=== PATIENT | female | born 1990 | race Caucasian/White ===

== ENCOUNTER 2019-12-26 21:31 | Emergency (ER) | payer BC, MEDICAID, SELFPAY ==
[2019-12-26 21:31] VITALS: BP 147/90; PULSE 110; RESP 14; TEMP 37.1; O2SAT 97
--- NOTE | 2019-12-26 22:16 | ED.HA ---
HPI - Headache General Chief Complaint: Headache Stated Complaint: migraine Source: patient Mode of arrival: ambulatory Limitations: no limitations History of Present Illness HPI Narrative: 29 y.o. with hx of migraine headaches c/o 3 days of frontal and occipital pressure (rated #11/10) associated with neck and shoulder pain, made worse with head extension and rotation and sitting partially upright in bed. No hx of prolonged unusual head positions or exercises. She has minor photophobia and pain increased with smells. No noise sensitivities. She has mulitiple migraines each month which she describes as similar to this minus the occipital, neck and shoulder symptoms. She has no numbness or weakness of the extremities. Maxalt usually relieves her headaches. She has taken 2 tabs daily for the last 3 days with no relief. Related Data Home Medications Medication Instructions Recorded Confirmed rizatriptan 10 mg PO PRN 12/26/19 12/26/19 Allergies Allergy/AdvReac Type Severity Reaction Status Date / Time tramadol AdvReac Vomiting Verified 12/26/19 21:51 Review of Systems Constitutional: Constitutional: Denies chills and Denies fever(s) Eyes: Eyes: Denies change in vision Comments: no scatoma or visual disturbances. Gastrointestinal: Comments: minor nausea Musculoskeletal: Comments: no muscles pain elsewhere. Integumentary/Breasts: Skin/Breast: Denies rash Neurologic: Denies vertigo, Denies syncope and Denies weakness [facility] Past Medical History Medical History (Updated 12/27/19 @ 00:15 by David Hathaway MD) Migraine headache Exam Const: General: no acute distress Orientation/consciousness: patient oriented x3 Other: no photophobia. Sitting upright on side of bed. Normal volume and flluency of speech. HENMT: Face and sinus: sinus tenderness (frontal sinus tenderness only. ) Other: tender occiput Eyes: Pupils: Equal, round and reactive pupils present EOM: EOMs intact bilaterally Direct Ophthalmoscopy: No photophobia Neck: Neck: no lymphadenopathy Other: Tender cervical spinous processes, cervical and upper thoracic paraspinal muscles. Tender trapezius. Head ROM limited by pain: almost full flexion, extension and rotation to either side are moderately restricted. Back/Spine/Pelvis: Other: . Neuro: General: patient oriented x3 Cranial nerves: Yes CN's II-XII intact bilaterally Cognition (Neuro): normal cognition Speech: normal speech Gait exam (Neuro): Normal gait present Motor exam (neuro): 5/5 motor strength present throughout Sensory Exam: normal sensation Extrem: General: normal to inspection Course Course Emergency Course: Given Toradol 60 mg IM and Flexeril 10 mg p.o. with pain decreasing to a 6/10. Reglan 10 + Benadryl 25 mg IV resulted in marked improvement. Headache #2-3/10. Neck and should soreness has decreased. Vital Signs Vital signs: Vital Signs Temperature 37.1 C 12/26/19 21:31 Pulse Rate 110 H 12/26/19 21:31 Respiratory Rate 14 12/26/19 21:31 Blood Pressure 147/90 H 12/26/19 21:31 Pulse Oximetry 97 12/26/19 21:31 Temperature 37.1 C 12/26/19 21:31 Pulse Rate 110 H 12/26/19 21:31 Respiratory Rate 15 12/27/19 00:24 Blood Pressure 147/90 H 12/26/19 21:31 Pulse Oximetry 100 12/27/19 00:24 MDM - Headache Differential Diagnosis Differential diagnosis: Likely migraine and tension headache Discharge Plan Discharge Clinical Impression: Migraine headache, Tension headache Patient Disposition: Home, Self-Care Condition: Stable Instructions: Antibiotic Form, Migraine Headache (ED), Tension Headache (ED) Additional Instructions: Follow up with Dr Krishnan 12/27 if headache persists. Prescriptions: No Action rizatriptan 10 mg tablet 10 mg PO PRN RF: 0 Follow-up/Referrals: Ariella,Moises Connolly MD [Primary Care Provider] - Stand Alone Forms: Work/School Release IP Time of Disposition: 00:15 Discharge
[2019-12-26] MEDS: KETOROLAC (*BKC) 60 MG/2 ML VIAL IM (22:24)
[2019-12-26] MEDS: CYCLOBENZAPRINE HCL 10 MG TABLET PO (22:25)
--- NOTE | 2019-12-26 22:25 | PC.NURSE ---
PT REFUSED TO HAVE IM INJECTION ANYWHERE ELSE BESIDES DELTOID. EDUCATION PROVIDED. TORADOL IM RIGHT DELTOID GIVEN.
[2019-12-26] MEDS: METOCLOPRAMIDE HCL INJ 10 MG/2 ML VIAL IV PUSH (23:26)
[2019-12-27 00:24] VITALS: RESP 15; O2SAT 100
== END 2019-12-27 00:25 | disposition home or self-care (01) ==
PROVIDERS: Emergency Provider Family Medicine; PCP Pediatrics
DX: G43.909 Migraine, unspecified, not intractable, without status migrainosus (principal); G44.209 Tension-type headache, unspecified, not intractable
CPT/HCPCS: 96372; 96374; 96375; 99282; 99284; A9270; J1200; J1885; J2765

== ENCOUNTER 2020-02-12 12:37 | Emergency (ER) | payer BC, MEDICAID, SELFPAY ==
[2020-02-12 14:57] VITALS: BP 153/86; PULSE 89; RESP 16; TEMP 36.8; O2SAT 100
--- NOTE | 2020-02-12 15:07 | ED.EXTPRO ---
HPI - Extremity Problem General Chief complaint: Extremity Problem,Nontraumatic Stated complaint: leg numbness and swelling Source: patient Mode of arrival: ambulatory Limitations: no limitations History of Present Illness HPI Narrative: Throbbing pain in both lower extremities for the last 2 weeks associated with a numb sensation. This correlates with increasing back pain. Last week she saw Dr. Mosley , her pain doctor in [place], who felt that the leg pain was secondary to her back problem. She was given a script for Lyrica but she has not had it filled. Further back diagnostics is dependent on insurance. A week ago she started experiencing pain in her Achilles tendons and the bottom of her heels. Yesterday she notice swelling in her feet more on the right than the left. She contacted her PCP in [place], Dr. Cooper, today. She was instructed to be seen in the ED because she probably had a pinched nerve. Walking and standing make the pain worse. Related Data Allergies Allergy/AdvReac Type Severity Reaction Status Date / Time tramadol AdvReac Vomiting Verified 12/26/19 21:51 Review of Systems Constitutional: Constitutional: Reports chills and Reports fever(s) ENT: Reports nasal congestion and Reports sore throat Cardiovascular: Cardiovascular: Reports chest pain Respiratory: Respiratory: Reports cough and Reports dyspnea Gastrointestinal: Gastrointestinal: Reports abdominal pain, Reports diarrhea, Reports nausea and Reports vomiting Musculoskeletal: Musculoskeletal: Reports no additional musculoskeletal complaints Integumentary/Breasts: Skin/Breast: Denies rash Neurologic: Reports focal weakness Psychiatric: Psychiatric: Denies anxiety and Denies depression PMFSH Past Medical History Medical History Migraine headache Exam Const: General: healthy appearing and alert Orientation/consciousness: patient oriented x3 Back/Spine/Pelvis: Back: no CVA tenderness Other: lower lumbar paravertebral muscle tenderness. Skin: General skin exam: normal color Other: extremities warm and dry. Neuro: General: patient oriented x3 and moves all extremities Extrem: General: edema (1+ edema r foot and lower pretibial region. Minor edema on left) bilateral Other: painless ankle, knees and hip movement. Tender distal achilles and proximal plantar heel. No redness or swelling of foot, plantar surface, ankle. Minor tenderness along the lateral collateral ligaments of the knee. SLR - negative. 5& foot and great toe dorsiflexion strength. 2+ patellar and ankle jerk reflexes - symmetric Psych: Mental Status: mental status grossly normal Affect: normal affect Course Vital Signs Vital signs: Vital Signs Temperature 36.8 C 02/12/20 14:57 Pulse Rate 89 02/12/20 14:57 Respiratory Rate 16 02/12/20 14:57 Blood Pressure 153/86 H 02/12/20 14:57 Pulse Oximetry 100 02/12/20 14:57 Temperature 36.8 C 02/12/20 14:57 Pulse Rate 89 02/12/20 14:57 Respiratory Rate 16 02/12/20 14:57 Blood Pressure 153/86 H 02/12/20 14:57 Pulse Oximetry 100 02/12/20 14:57 MDM - Extremity (Nontraumatic) MDM Narrative Medical decision making narrative: Tenderness at the Os calcis, plantar and posterior aspect suggests an enthesopathy. There is no findings s/o a neuropathy/nerve root impingement. I recommended Narproxen 500 BID and close follow up with PCP for further evaluation. Differential Diagnosis Differential diagnosis: Likely other (arthritis, tendonitis, enthesopathy, fibromyalgia) Discharge Plan Discharge Clinical Impression: Lower extremity pain, Bilateral swelling of feet Patient Disposition: Home, Self-Care Condition: Stable Instructions: Tendinitis (ED) Additional Instructions: Follow up appointment with Dr. Cooper in 1 - 2 days. Start naproxen 500 mg BID Prescriptions: New naproxen 500 mg tablet
== END 2020-02-12 16:58 | disposition home or self-care (01) ==
PROVIDERS: Emergency Provider Family Medicine; PCP Pediatrics
DX: M79.605 Pain in left leg (principal); M79.604 Pain in right leg; M79.89 Other specified soft tissue disorders
CPT/HCPCS: 99283

== ENCOUNTER 2021-03-14 21:27 | Observation (INO) | payer BC, MEDICAID, SELFPAY ==
[2021-03-14 22:00] VITALS: BMI 29.2
--- NOTE | 2021-03-14 22:00 | PC.NURSE ---
PT STATES SHE HAD \CONTRACTIONS AT HOME STARTING AT 1800. ABDOMEN PALPATES SOFT. NO PAIN ON ARRIVAL. RATES 4 AT HOME AN 6 AT WORST. SEE OBIX,.
--- NOTE | 2021-03-14 23:17 | PC.NURSE ---
Pt states she does not feel contractions. Cervix is closed. Dr. Rm notified and pt to be discharged to home.
--- NOTE | 2021-03-18 21:14 | PM.OBPRVD ---
OB - Delivery Note Procedure events: Induced HTN Intrapartal events: Ceph-Pelvic Disproportion (arrest of descent) Route of delivery: Specimen: Yes Quantitative Blood Loss (ml): 890 Anesthesia type: Epidural Disposition: floor Narrative: Patient was prepped and draped in usual manner for this procedure. Pfannenstiel incision was made which was carried down to the fascia and then extended bilaterally the length of the skin incision. Superiorly and inferiorly dissected away from the rectus muscles which were then bluntly dissected and the peritoneum was entered and the bladder flap was developed. Uterus was scored with lightly meconium-stained fluid noted and lower segment once incised. Vertex was delivered section nasopharynx rest of baby was delivered cord clamped and cut and passed off to the waiting yard worker. Placenta was exteriorized and uterus was exteriorized. Cleared of the uterus was cleared of membranes and clots. Left angle extension of the uterine incision was noted and readily rendered hemostatic using 0 Monocryl running interlocking manner to approximate the extension on the left side. The uterine incision itself was then closed using 0 Monocryl in a running interlocking manner with good approximation hemostasis noted. Uterus was turned to the abdomen gutters were cleared of serosanguineous fluid and clots and the uterine incision was given SPECT and noted be hemostatic and and intact. All subfascial tissue was noted be hemostatic and the fascia was approximated 0 Vicryl from left angle midline the right angle midline with the subcutaneous tissue then approximated using 0 plain suture. Skin was approximated using wide scott and the patient was then tented recovery room in stable condition. [place] Baby Weeks of gestation at delivery: 38 Infant gender: Male Weight (pounds): 7 Weight (ounces): 6 score one minute: 3 score five minutes: 8 score ten minutes: 9
--- NOTE | 2021-03-25 08:05 | PM.OBTRLD ---
OB - Triage/Final Diagnosis Visit Information Reason for evaluation: threatened labor Comments/Additional reasons for admission: I have assessed the risk for this patient, Teresa Modi, and determined that she would benefit from observation care.
== END 2021-03-14 23:45 | disposition home or self-care (01) ==
PROVIDERS: Admitting Provider Obstetrics & Gynecology; PCP Pediatrics; Visit Provider Obstetrics & Gynecology
DX: O47.03 False labor before 37 completed weeks of gestation, third trimester (principal); Z3A.28 28 weeks gestation of pregnancy
CPT/HCPCS: G0378; G0379

== ENCOUNTER 2022-07-01 15:05 | Outpatient (CLI) | payer OTHER, SELFPAY ==
[2022-07-01 16:37] LABS: Influenza A QL RT-PCR Negative (Negative); Influenza B QL RT-PCR Negative (Negative); RSV RNA, RT-PCR Negative (Negative); SARS-CoV-2 RNA PCR Positive (Negative)
== END 2022-07-01 15:06 | disposition home or self-care (01) ==
LOC: CHSLAB 15:10
PROVIDERS: PCP Pediatrics
DX: U07.1 COVID-19 (principal); R05.9 Cough, unspecified
CPT/HCPCS: 87637

== ENCOUNTER 2023-06-07 11:10 | Outpatient (CLI) | payer OTHER, SELFPAY ==
--- NOTE | ~2023-06-07 | XR_ITS ---
EXAMINATION: XR chest 2V DATE: 06/07/2023 12:03 INDICATION: Cough and right rib pain TECHNIQUE: frontal and lateral views of the chest were obtained. COMPARISON: None FINDINGS: The lungs are clear with no focal airspace opacities, pulmonary edema, pleural effusion or pneumothor ax. The cardiomediastinal silhouette is normal. Visualized bones and soft tissues are unremarkable. IMPRESSION: 1. No acute cardiopulmonary disease. Reviewed, dictated and finalized at location A. T DAYCARE COORDINATOR
== END 2023-06-07 11:11 | disposition home or self-care (01) ==
LOC: CHSIMG 11:13
PROVIDERS: PCP Urology Pediatric Urology; Visit Provider Nurse Practitioner Family
DX: R05.9 Cough, unspecified (principal); R07.81 Pleurodynia
CPT/HCPCS: 71046

== ENCOUNTER 2025-02-13 15:52 | Emergency (ER) | payer OTHER, MEDICAID, SELFPAY ==
[2025-02-13 15:52] VITALS: BP 138/88; PULSE 80; RESP 18; TEMP 36.2; O2SAT 97
--- OUTSIDE RECORDS SUMMARY | 2025-02-13 16:02 | XMS_ITS | Encounter Summary ---
Author Organization [facility] Address [address] [place] [id number] Care Team Providers Care Granite Cutter Apprentice Name Role Phone Riley Krishnan MD Primary Care Provider + [phone] Encounter Details Date Type Department Care Team (Late st Contact Info) Description 05/11/2021 Hospital Follow-up Call [facility] [place] [address] Yazmin Atkinson, RN Social History Tobacco Use Types Packs/Day Years Used Date Smoking Tobacco: Former Cigarettes Q uit: 09/08/2017 Smokeless Tobacco: Never Alcohol Use Standard Drinks/Week Comments Never 0 (1 standard drink = 0.6 oz pur e alcohol) AUDIT-C Answer Date Recorded Frequency of Alcohol Consumption Never 09/08/2019 Average Number of Drinks Not on file 020 Frequency of Binge Drinking Not on file 08/20 Comments Yes Sex and Gender Information Value Date Recorded Sex Assigned at Not on file Legal Sex Female 2:16 PM CDT Gender Identity Not on file Sexual Orientation Not on file COVID-19 Exposure Response Date Recorded In the last month, have you been in contact with someone who was confirmed or suspected to have Coronavirus / COVID-19? No / Unsure 04/19/2021 10:34 PM CDT documented as of this encounter Plan of Treatment Not on file documented as of this encounter Visit Diagnoses Not on filedocumented in this encounter Care Teams Granite Cutter Apprentice Relationship Specialty Start Date End Date Riley Krishnan MD [address] [place] [id number] PCP - General PEDIATRICS 09/07/19 documented as of this encounter
--- OUTSIDE RECORDS SUMMARY | 2025-02-13 16:02 | XMS_ITS | Clinical Summary ---
Author Organization [facility] Address [address], [place] [address] Phone Care Team Providers Care Quantitative Software Engineer Name Role Phone Riley Krishnan MD Primary Care Provider [phone] Allergies Active Allergy Reactions Criticality Noted Date Comments Other-Food Allergen (Not Fou nd In Search) Anaphylaxis High 03/30/2019 Tree nut Tramadol Vomiting 03/30/2019 Medications EPINEPHrine (EPIPEN) 0.3 MG/0.3ML Solution Prefilled Syringe by Intramuscular route once. Active diphenhydrAMIN E-APAP, sleep, (TYLENOL PM EXTRA STRENGTH PO) Take by mouth. Activ e fluticasone (FLONASE) 50 MCG/ACT Suspension 1-2 Sprays by Nasal route daily. Use in each nostril as directed. 1 Bottle 3 0 Active melatonin 3 MG Tablet Take 10 mg by mouth nightly. Active Rizatriptan Benzoate 10 MG Tablet Take 1 Tab by mouth once as needed for Headaches for up to 1 dose. May repeat in 2 hours in needed 10 Tab 4 0 Active Active Problems Problem Noted Date Diagnosed Date Migraine with aura and with status migrainosus, not intractable 04/05/2019 Postconcussive syndrome 04/05/2019 Family History Medical History Relation Name Comments Hypertension Mother Relation Name Status Comments Mother Alive Social History Tobacco Use Types Packs/Day Years Used Date Smoking Tobacco: Former Cigarettes Q uit: 07/19/2015 Smokeless Tobacco: Never Alcohol Use Standard Drinks/Week Comments Yes 0 (1 standard drink = 0.6 oz pur e alcohol) occasional Comments Unknown Sex and Gender Information Value Date Recorded Sex Assigned at Not on file Legal Sex Female 4:08 PM SEAM PRESS OPERATOR Gender Identity Not on file Sexual Orientation Not on file Last Filed Vital Signs Vital Sign Reading Time Taken Comments Blood Pressure 120/84 07/01/2020 1:31 PM SEAM PRESS OPERATOR Pulse 92 07/01/2020 1:31 PM SEAM PRESS OPERATOR Temperature 36.7 C (98 F) 07/01/2020 1:31 PM SEAM PRESS OPERATOR Respiratory Rate 16 07/01/2020 1:31 PM SEAM PRESS OPERATOR Oxygen Saturation 99% 07/01/2020 1:31 PM SEAM PRESS OPERATOR Inhaled Oxygen Concentration - - Weight 79.7 kg (175 lb 12.8 oz) 07/01/2020 1:31 PM SEAM PRESS OPERATOR Height 166.6 cm (5' 5.6) 07/01/2020 1:31 PM SEAM PRESS OPERATOR Body Mass Index 28.72 07/01/2020 1:31 PM SEAM PRESS OPERATOR Plan of Treatment Health Maintenance Due Date Last Done Comments Hepatitis C Virus (HCV) Screening 1992 Pap Smear 2013 Cervical Cancer Screening (CCS) 2022 HPV/Cotest 2022 SARS-COV-2 Immunization ( season) 2024 Influenza Immunization (#1) 2025 Respiratory Syncytial Virus (RSV) Immunization (Adult) (1 - 1-dose 75+ series) 10/03/2067 Hepatitis B Immunization Completed 993, 1992, 1992 Human Papillomavirus (HPV) Immunization Completed 08/25/2007, 05/19/2007, 02/28/2007 DTaP/Tdap/Td Immunization Discontinued 2016, 02/28/2007, 10/12/1994, Additional history exists TdaP Immunization Completed 08/02/2016, 02/28/2007 Meningococcal Immunization (ACWY) Aged Out No longer eligible based on patient's age to complete this topic Pneumococcal Immunization Combined Aged Out No longer eligible based on patient's age to complete this topic Rotavirus Immunization Aged Out No lo nger eligible based on patient's age to complete this topic Insurance [place] [address] Care Teams Quantitative Software Engineer Relationship Specialty Start Date End Date Riley Krishnan MD [address] [place] [address] PCP - General Pediatrics 11/03/19
--- OUTSIDE RECORDS SUMMARY | 2025-02-13 16:02 | XMS_ITS | Data Portability ---
Author Organization [facility] [employer] , [facility] Address [address] [place] [address] Assessment No assessment recorded. Plan of Treatment Reminders Order Date Submit Date Provider Last Modified By Organization Details Last Modified Time Details Appointments None recorded. Lab test, urine 2021 022 [email or web address] [facility], [address] [place], [address], 16:15:10 Referral None recorded. Procedures None recorded. Surgeries None recorded. Imaging None recorded. Medication Orders doxycycline hyclate 100 mg capsule [address], [place], [address], 16:16:46 estradiol 1 mg tablet [address], [place], [address], 16:16:46 Patient TargetsNo targets recorded. Patient Instructions Encounter Date Encounter Id Patient Instructions Last Modified By Organization Details Last Modified Time 08/04/2021 [id number] Care at Home With Your Baby: Care Instructions [email or web address] Not available 08/04/2021 16:15:10 edinburgh depression scale* [email or web address] Not available 09/11/2021 16:22:05 control after counseling [email or web address] Not available 08/04/2021 16:15:09 Reason for Referral None Reported. Results Created Date Observation Date Name Description Value Unit Range Abnormal Flag Note LastModifiedBy Organization Detail LastModifiedTime 08/04/19 22 08/04/2021 pregn shell test, urine HCG negati ve Not Available [facility] [address] [facility], [place], [address], 08/04/2021 15:41:07 08/20/19 22 08/18/2021 US, trans vagin al No observ ation record ed. [email or web address] [address], [place], [address], 08/24/2021 16:04:50 Result Notes None recorded. Problems Name Problem SNOMED Code Status Onset Date Resolution Date Notes Provider Name and Address Organization Details Recorded Time Gestatio n period, 30 weeks 08992217 Completed 201604/11/2021 30 weeks gestatio n of pregnanc y; Progress : Stable Added By: Geno Angela Add to Current Problems : NO ProblemS tatus: Resolve Not Available [facility] 2 20:11:25 Rubella screenin g status 500099832 Completed 201603/23/2018 Antenata l screenin g; unspecif ied; Location : None Progress : Stable Added By: Anny Flowers Add to Current Problems : YES ProblemS tatus: Resolve Antenata l screenin g; unspecif ied; Location : None Progress : Stable Added By: Dimitri Erwin Add to Current Problems : YES ProblemS tatus: Resolve Encounte r for antenata l screenin g, unspecif ied; Progress : Stable Added By: Anny Flowers Add to Current Problems : NO ProblemS tatus: Resolve Not Available [facility] 2 20:11:22 Gestatio n period, 39 weeks 10040792 Completed 201603/23/2018 39 weeks gestatio n of pregnanc y; Progress : Stable Added By: Anny Flowers Add to Current Problems : NO ProblemS tatus: Resolve Not Available [facility] 2 20:11:25 Normal pregnanc y 35517876 Completed 201612/15/2017 Medical visit for normal pregnanc y; Location : None Progress : Stable Added By: Anny Flowers Add to Current Problems : YES ProblemS tatus: Resolve Medical visit for normal pregnanc y; Location : None Progress : Stable Added By: Dimitri Erwin Add to Current Problems : YES ProblemS tatus: Resolve Not Available [facility] 2 20:11:[address] Concept Completed 201703/23/2018 Encounte r for follow-u p examinat ion after complete d treatmen t for conditio ns other than malignan t neoplasm ; Progress : Stable Added By: Anny Flowers Add to Current Problems : NO ProblemS tatus: Resolve Not Available [facility] 2 20:11:21 Surgical follow-u p - normal 312886398 Completed 201703/23/2018 Follow-u p exam followin g other surgery; Location : None Severity : Moderate Progress : Stable Added By: Anny Flowers Add to Current Problems : YES ProblemS tatus: Resolve Not Available [facility] 1 05:11:48 Lochia finding Completed 201712/23/2018 Encounte r for routine postpart um follow-u p; Progress : Stable Added By: Anny Flowers Add to Current Problems : NO ProblemS tatus: Resolve Not Available [facility] 2 20:11:25 Screenin g for disorder Completed 201712/23/2018 Encounte r for screenin g for other disorder ; Progress : Stable Added By: Anny Flowers Add to Current Problems : NO ProblemS tatus: Resolve Screenin g for depressi on; Location : None Progress : Stable Added By: Anny Flowers Add to Current Problems : YES ProblemS tatus: Resolve Not Available [facility] 2 20:11:22 Postpart um care Completed 201712/23/2018 Visit for routine postpart um follow-u p; Location : None Progress : Stable Added By: Anny Flowers Add to Current Problems : YES ProblemS tatus: Resolve Not Available [facility] 2 20:11:23 Atypical squamous cells of undeterm ined signific ance on cervical Papanico laou smear 280722029 Completed 201712/19/2020 Papanico laou smear of cervix with atypical squamous cells of undeterm ined signific ance (ASC-US) ; Progress : Stable Added By: Dimitri Erwin Add to Current Problems : NO ProblemS tatus: Resolve Atypical squamous cells of undeterm ined signific ance on cytologi c smear of cervix (ASC-US) ; Progress : Stable Added By: Dimitri Erwin Add to Current Problems : NO ProblemS tatus: Resolve Papanico laou smear of cervix with atypical squamous cells of undeterm ined signific ance (ASC-US) ; Location : None Progress : Stable Added By: Dimitri Erwin Add to Current Problems : YES ProblemS tatus: Current Not Available [facility] 2 20:11:20 Antenata l ultrasou nd finding 630178401 Completed 202012/19/2020 Encounte r for pregnanc y test, result unknown; Progress : Stable Added By: Wendy Haley Add to Current Problems : NO ProblemS tatus: Resolve Not Available [facility] 2 20:11:22 Finding of viabilit y of pregnanc y 205742715 Completed 202012/19/2020 Pregnanc y with inconclu sive viabilit y, not applicab le or unspecif ied; Progress : Stable Added By: Cori Lozano i Add to Current Problems : NO ProblemS tatus: Resolve Not Available [facility] 2 20:11:23 Gestatio n less than 9 weeks 962602332 Completed 202012/19/2020 Less than 8 weeks gestatio n of pregnanc y; Progress : Stable Added By: Wendy Haley Add to Current Problems : NO ProblemS tatus: Resolve Not Available [facility] 2 20:11:23 Gestatio n period, 11 weeks 41292992 Completed 202012/19/2020 11 weeks gestatio n of pregnanc y; Progress : Stable Added By: Wendy Haley Add to Current Problems : NO ProblemS tatus: Resolve Not Available [facility] 2 20:11:21 Gestatio n period, 15 weeks [id number] Completed 202001/22/2021 15 weeks gestatio n of pregnanc y; Progress : Stable Added By: Tray Miner Add to Current Problems : NO ProblemS tatus: Resolve Not Available [facility] 2 20:11:23 Normal pregnanc y in [place] [id number] 4106 Completed 202003/27/2021 Encounte r for supervis ion of other normal pregnanc y, first trimeste r; Severity : Moderate Progress : Stable Added By: Wendy Haley Add to Current Problems : NO ProblemS tatus: Resolve; Start Date : 10/23/19 21 Encou nter for supervis ion of other normal pregnanc y, second trimeste r; Severity : Moderate Progress : Stable Added By: Tray Miner Add to Current Problems : NO ProblemS tatus: Resolve Encounte r for supervis ion of other normal pregnanc y, third trimeste r; Severity : Moderate Progress : Stable Added By: Geno Angela Add to Current Problems : YES ProblemS tatus: Current; Start Date : 07/14/20 17 Not Available [facility] 19:48:02 Gestatio n period, 20 weeks 57239697 Completed 202002/21/2021 20 weeks gestatio n of pregnanc y; Progress : Stable Added By: Geno Angela Add to Current Problems : NO ProblemS tatus: Resolve Not Available [facility] 2 20:11:20 Antenata l screenin g for malforma tion Completed 202002/21/2021 Encounte r for antenata l screenin g for malforma tions; Progress : Stable Added By: Geno Angela Add to Current Problems : NO ProblemS tatus: Resolve Not Available [facility] 2 20:11:24 Gestatio n period, 24 weeks 662939785 Completed 202003/27/2021 24 weeks gestatio n of pregnanc y; Progress : Stable Added By: Tray Miner Add to Current Problems : NO ProblemS tatus: Resolve Not Available [facility] 2 20:11:22 Gestatio n period, 28 weeks 36916356 Completed 202003/27/2021 28 weeks gestatio n of pregnanc y; Progress : Stable Added By: Spring Martinez Add to Current Problems : NO ProblemS tatus: Resolve Not Available [facility] 2 20:11:22 [facility] Active 2020 Encounte r for supervis ion of other normal pregnanc y, first trimeste r; Progress : Stable Added By: Wendy Haley Add to Current Problems : NO ProblemS tatus: Resolve; Start Date : 10/23/19 21 Encou nter for supervis ion of other normal pregnanc y, second trimeste r; Progress : Stable Added By: Tray Miner Add to Current Problems : NO ProblemS tatus: Resolve; Start Date : 12/20/19 Encou nter for supervis ion of other normal pregnanc y, third trimeste r; Progress : Stable Added By: Sreene Camejo Add to Current Problems : YES ProblemS tatus: Current Not Available [facility] 2 20:11:24 Gestatio n period, 32 weeks 0646945 Completed 202005/30/2021 32 weeks gestatio n of pregnanc y; Severity : Moderate Progress : Stable Added By: Geno Angela Add to Current Problems : YES ProblemS tatus: Current NURIS SENDY VALERIO, CN [address] [facility], [place], [address] , [facility] 21:38:45 Gestatio n period, 33 weeks 04711241 Active 2020 33 weeks gestatio n of pregnanc y; Progress : Stable Added By: Donna Cantu Add to Current Problems : YES ProblemS tatus: Current Not Available [facility] 2 20:11:20 Gestatio n period, 35 weeks 92003511 Active 2020 35 weeks gestatio n of pregnanc y; Progress : Stable Added By: Cindy Cantu Add to Current Problems : YES ProblemS tatus: Current Not Available [facility] 2 20:11:21 Antenata l screenin g Active 2020 Encounte r for antenata l screenin g for Streptoc occus B; Progress : Stable Added By: Cindy Cantu Add to Current Problems : YES ProblemS tatus: Current Encounte r for other specifie d antenata l screenin g; Progress : Stable Added By: Serene Camejo Add to Current Problems : YES ProblemS tatus: Current; Start Date : 02/22/20 21 Not Available [facility] 2 20:11:24 Gestatio n period, 36 weeks 64500715 Active 2020 36 weeks gestatio n of pregnanc y; Progress : Stable Added By: Serene Camejo Add to Current Problems : YES ProblemS tatus: Current Not Available [facility] 2 20:11:21 Gestatio n period, 37 weeks 88571284 Active 2020 37 weeks gestatio n of pregnanc y; Progress : Stable Added By: Serene Camejo Add to Current Problems : YES ProblemS tatus: Current Not Available [facility] 2 20:11:24 Pregnanc y 28918399 Completed 202006/09/2021 Aide torres, [facility] 1 23:07:40 Gestatio n period, 38 weeks 13755686 Completed 202006/09/2021 [facility]ide torres, [facility] 1 23:07:37 Notes:Follow-up exam followi ng other surgery (V67.09) ; OnsetDate: 02/23/2018; ResolvedDate: 03/23/2018; Progress: Stable Added By: Anny Flowers Add to Current Problems: NO ProblemStatus: Resolve Problem Notes None recorded. Procedures Surgical History Date Name Laterality Status Provider Name and Address Organization Details Recorded Time 2 IUD Insertion completed Garrett George MD [address] [facility], [place], [address], [facility] 08/04/2021 16:27:03 12/29/202 1 IUD Insertion cancelled Leta Edwards [facility] [employer] [facility] 07/15/2021 11:05:26 8 Date of Last Pap Smear completed Caterina Preston [facility] 05/30/2021 11:14:37 delivery completed Garrett George MD [address] [place], [address], [facility] [employer] [facility] 08/04/2021 16:08:19 Imaging Results None recorded. Procedure Notes None recorded. Medical Equipment None Reported. Allergies No known drug allergies Medications Name Sig Start Date Stop Date Status Note LastModified by Organization Details LastModified Time doxycycli ne hyclate 100 mg capsule Take 1 capsule twice a day by oral route. 2021 active Not Available Not Available Not Avai lable Apri 0.15 mg-0.03 mg tablet take on daily at night 01/27 completed Apri 28 30mcg/0. 15mg Tablet RxNorm: 443021 Allow Substitu tion: True Refill Denied: No Refill Note: Auto Aged Refill DateOccu rred: 11/29/19 19 Not Available Not Available Not Available Diflucan 150 mg tablet 1 p.o. in two days -- repeat in two days 03/23 completed Diflucan 150mg Tablet RxNorm: 997548 Allow Substitu tion: True Refill Denied: No Not Available Not Available Not Available Reglan 10 mg tablet 1 po q 6 hours as needed for n/v 11/11 completed Reglan 10mg Tablet RxNorm: 916010 Allow Substitu tion: True Refill Denied: No Not Available Not Available Not Available Vitamin tablet Take 1 taablet by mouth daily. 07/14 completed Multivit cano Tablet Allow Substitu tion: True Refill Denied: No Not Available Not Available Not Available estradiol 1 mg tablet Take 1 tablet every day by oral route. 2021 active Not Available Not Available Not Avai lable [place] 28 0.15 mg-0.03 mg tablet Take 1 tablet(s ) by mouth daily as directed . 03/23 completed Ashleigh 28 30mcg/0. 15mg Tablet RxNorm: 812796 Allow Substitu tion: True Refill Denied: No Not Available Not Available Not Available rizatript an 12/19 completed rizatrip mattson RxNorm: 070655 Allow Substitu tion: False Refill Denied: No Refill DateOccu rred: 10/09/19 Edited by: esequiel Kirkpatrick esWilfredoyne ) on 12/20/19 Stopped by: esequiel gonzalez(Edgardo esTray ) on 12/20/19 21 Not Available Not Available Not Available 01/23 completed Allow Substitu tion: False Refill Denied: No Refill DateOccu rred: 10/23/19 Edited by: Mitzi Palacios ) on 01/24/20 21 Stopped by: iman(Mitzi Boyce ) on 01/24/20 21 Not Available Not Available Not Available Multiple Vitamin, Womens 03/28 completed Multiple Vitamin, Womens Allow Substitu tion: False Refill Denied: No Refill DateOccu rred: 01/24/20 Edited by: Mitzi Palacios ) on 03/28/20 Stopped by: iman(Mitzi Boyce ) on 03/28/20 Not Available Not Available Not Available 28 mg iron-800 mcg tablet 1 po daily *May substitu te for what is covered by pt insuranc e* 2020 active 28 mg iron- 800 mcg oral tablet Allow Substitu tion: True Refill Denied: No Edited by: cuateiso alfa(Brinda Alexis ) on 01/24/20 21 Stopped by: lharriso alfa(Brinda Alexis ) on Not Available Not Available Not Available Vitals Date Recorded Body height Provider Name an d Address Organization Details Last Updated DateTime 08/04/2021 167.64 cm Cindy Cantu [facility] 08/04/2021 15:03:09 Date Recorded Body height Body mass index (BMI) Body weight Body temperature Systolic And Diastolic Provider Name and Address Organization Details Last Updated DateTime 05/30/2021 167.64 cm 32.4 kg/m2 56763.0 6637 g 97.3 [degF] 122/82 mm[Hg] Serene Camejo [facility] [employer] [facility] 14:57:51 Date Recorded Body weight Provider Name an d Address Organization Details Last Updated DateTime 06/10/2021 92454.481400 g Cindy Cantu [facility] 07/16/2021 09:18:41 Date Recorded Body height Body temperature Body mass index (BMI) Systolic And Diastolic Provider Name and Address Organization Details Last Updated DateTime 06/10/2021 167.64 cm 97.2 [degF] 29.8 kg/m2 122/70 mm[Hg] Pearl Rincon [facility] 06/10/2021 12:34:21 Social History Question Answer Notes LastModified by [employer] Details LastModified Time Tobacco Smoking Status Former Smoker Aide Ceballosalice torres, [facility] 06/09/2021 23:09:18 If You Are , What Was Your Level Of Alcohol Consumption Prior To ? None Information not available 08/01/2021 How Many Children Do You Have? 2 Information not available 05/30/2021 What Is Your Relationship Status? Information not available 05/30/2021 Are You Sexually Active? Yes Information not available 05/30/2021 Sex: Unknown Functional Status Question Answer Note LastModified by [employer] Details LastModified Time How many times per week do you consume alcohol? 1-2 times per week Information not available 08/01/2021 Do you use any illicit or recreational drugs? No Information not available 08/01/2021 Do you or have you ever used any other forms of tobacco or nicotine? No Information not available 08/01/2021 What is your level of alcohol consumption? Occasional [email or web address] Information not available 06/09/2021 Are you currently employed? Yes [email or web address] Information not available 08/04/2021 What is your occupation? works at [email or web address] Information not available 08/04/2021 Mental Status None recorded. Family History Relationship Description Onset Age of this Age Resolved Age Notes LastModified by Organization Details LastModified Time Father No current problems or disability Not available 08/01 14:22:00 Mother No current problems or disability Not available 08/01 14:22:00 Medical History Condition Response High Blood Pressure N Kidney Stones N Blood Diseases N Cytomegalovirus N Hyperthyroidism N MRSA N Blood Transfusion N Depression N COPD N Incontinence N Anxiety Disorder N Autoimmune disease N Muscle, Joint, or Bone Problems N Obesity N Vision or Eye Problems N Arthritis N Auditory Hallucinations N Polycystic Ovarian Syndrome N Mental Disorder N Hematuria N Varicosities N Stroke N Crohn's Disease N Seasonal allergies N Alzheimer's/Dementia N COPD/Emphysema N History of Abnormal Pap N Fibromyalgia N Kidney Infection N Kidney Disease N Gallbladder disease N Von Willebrand disease N Ear or Hearing Problems N Hospitalizations N Learning Disorder N Skin Problems N Eating Disorder N Diabetes Mellitus (non-insulin dependent ) N MRSA exposure N Ovarian Problems N Constipation N Brain Injury N Frequent Urinary Tract infections N Osteopenia N GERD (reflux) N Visual Hallucinations N Diabetes (insulin dependent) N Tuberculosis N AIDS/HIV N Asthma N Heart Attack N Endometrial Cancer N GERD/Reflux N Hepatitis N Pulmonary Embolism N Chronic Ear Infections N RPR N Autism Spectrum Disorder (ASD) N Chicken Pox N Other Cancer N Thyroid Disease N Colon Cancer N Herpes (HSV) N Breast Cancer N Lung Cancer N Hypothyroidism N Developmental or Behavioral Disorders N Difficulty Swallowing N Panic Attacks N Neurological Disorder N Deep Vein Thrombosis N Meniere's disease N Tuberculosis/Positive PPD N Shingles N Cervical Cancer N Chlamydia N HPV/Genital Warts N Endometriosis N Bladder or Kidney Problems N IBS (Irritable Bowel Syndrome) N High Cholesterol N Liver Disease N Psychiatric/Mental Health Condition N Schizophrenia N Ulcer N Allergies/Hayfever N HIV N Sickle Cell Disease/Trait N ADD/ADHD N Anemia N Multiple Sclerosis N Gonorrhea N Mental Illness N Headaches/migraines N Ovarian Cancer N Bedwetting N Seizures/Epilepsy N Fibroids N Amnesia N Congestive Heart Failure (CHF) N Diverticulitis N Lupus N Rubella N Blood Clotting Disorder N Bipolar Disorder N Reflux/GERD N Diabetes Mellitus (during ) N Ulcerative Colitis N Heart Disease N Tourette Syndrome N Osteoporosis N Gynecological History Statement/Question Response Date of LMP 07/28/2021 Most Recent Bone Density Sexually Active? Y HPV Vaccine Y Date of Last Pap Smear 03/19/2018 Most Recent Mammogram Current Control Method None Age at Menarche 13 Obstetrics History GPAL:G 3 P 3 0 0 3 Type Value Multiple Births 0 Full Term 3 Induced 0 Spontaneous 0 Premature 0 Living 3 Ectopics 0 Total 3 Past Encounters Encounter ID Performer Location Encounter Start Date Encounter Closed Date Diagnosis/Indication Diagnosis SNOMED-CT Code Diagnosis ICD10 Code Diagnosis Note [id number] NURIS KABA NANO VALERIO [facility] [address] [place] [address] 05/30/2021 14:46:37 05/30/2021 21:39:21 Normal in multigravida [id number] 51266 Z34.83 Planned RCS next week [id number] Garrett George MD [address] [address] 06/10/2021 12:21:01 06/10/2021 14:09:18 Postoperative visit 198739437 Z09 Feeling well. No N/V or Fever. Pain is minimal. No abnormal bleeding Bowels moving well and voiding without difficulty Maternal p ostpartum depression screening 7790354755 87066 Z13.32 [id number] Garrett George MD [address] [address] 08/04/2021 14:45:03 08/04/2021 16:28:26 state 11983930 Z39.2 we will have her go back on aug 26 unless w/abd pain and then to go back 09-03-21 Uses IUD (intrauterine device) contraception 264858576 Z97.5 you may experience some cramping for 48 hours and you may take 800 ibuprofenj every 6 hours as neede for cramping. Start your antibiotic s 2 days after the placement. You may have spotting for many days and this is typically because the endometria l lining is very thin secondary to the progestero ne in the IUD and you may take 1mg estradiol twice per day for 5 days if you have more than 7 days of spotting per month. you may even need to take an estradiol tablet every day or every other day to keep the lining thick enough to cover up the blood vessels in the uterus so you arent spotting Contracept ion care management 931893381 Z30.9 Health Concerns Section Related Observation LastModified by Organization Detai ls LastModified Time None Recorded Concern Status LastModified by Organization Details LastModified Time None Recorded Advance Directives Directive None Recorded Payers Insurance Date Sequence Insurance Name Policy Number Policy Zarate Covered Member ID Zarate Member ID Guarantor Name 08/22/2021 2 [place] [facility] Teresa Modi [id number] Teresa Modi 08/21/2021 1 [place] [id number] Teresa Modi [id number] Teresa Modi OBGyn Episode Ob Episode Information Episode Created Date Number of Fetuses Patient Bloodtype Patient rh Status Prepregnancy Weight lbs Domestic Partner Domestic Partner Phone Father Name Air Intelligence Officer Status 05/30/20 21 1 CLOSED Fetus Data First Name Last Name Admitted to NICU Weight (g) Sex Living Outcome Pediatric Complications Fetus ID Race Codes Race Delivery Type 2891.64 9 M Full Term [id number] Ronald Calculation Initial Ronald Date Initial Exam Date Initial Exam Provider Initial Ultrasound Date Last Menstrual Period Date Ultra Sound Weeks Gestation 0 Eighteen To Twenty Week Ronald Update Ultra Sound Date Fundal Height At Umbil Quickening Date Ultra Sound Latest Weeks Gestation Final Ronald Confirmed By Final Ronald Confirmed Date Final Ronald Date Ultra Sound Latest Days Gestation 0 0 Menstrual History Last Menstrual Date Menses Monthly On Bcp Conception Prior Menses Frequency Hcg Plus Date Menarche Onset Age Delivery Information Delivery Date Delivery Type Labor Anesthesia Weeks Gestation Incision Type Labor Labor Length Hrs Delivered By Post Complications Tubal Sterilization Discharge Date Comments 3 40 Discharge Information Feeding Method Contraceptive Method Maternal HG B and HCT Levels Ob Episode Information Episode Created Date Number of Fetuses Patient Bloodtype Patient rh Status Prepregnancy Weight lbs Domestic Partner Domestic Partner Phone Father Name Air Intelligence Officer Status 05/30/20 21 1 CLOSED Fetus Data First Name Last Name Admitted to NICU Weight (g) Sex Living Outcome Pediatric Complications Fetus ID Race Codes Race Delivery Type 3656.85 [id number] F Full Term [id number] Primary Ronald Calculation Initial Ronald Date Initial Exam Date Initial Exam Provider Initial Ultrasound Date Last Menstrual Period Date Ultra Sound Weeks Gestation 0 Eighteen To Twenty Week Ronald Update Ultra Sound Date Fundal Height At Umbil Quickening Date Ultra Sound Latest Weeks Gestation Final Ronald Confirmed By Final Ronald Confirmed Date Final Ronald Date Ultra Sound Latest Days Gestation 0 0 Menstrual History Last Menstrual Date Menses Monthly On Bcp Conception Prior Menses Frequency Hcg Plus Date Menarche Onset Age Delivery Information Delivery Date Delivery Type Labor Anesthesia Weeks Gestation Incision Type Labor Labor Length Hrs Delivered By Post Complications Tubal Sterilization Discharge Date Comments 8 39 CPD Discharge Information Feeding Method Contraceptive Method Maternal HG B and HCT Levels Ob Episode Information Episode Created Date Number of Fetuses Patient Bloodtype Patient rh Status Prepregnancy Weight lbs Domestic Partner Domestic Partner Phone Father Name Air Intelligence Officer Status 05/30/20 21 1 B Positive CLOSED Fetus Data First Name Last Name Admitted to NICU Weight (g) Sex Living Outcome Pediatric Complications Fetus ID Race Codes Race Delivery Type Nayana 3515.33 8 M true Full Term [id number] Repeat Ronald Calculation Initial Ronald Date Initial Exam Date Initial Exam Provider Initial Ultrasound Date Last Menstrual Period Date Ultra Sound Weeks Gestation 06/09/2021 05/30/2021 10/22/2020 08/31/2020 7 Eighteen To Twenty Week Ronald Update Ultra Sound Date Fundal Height At Umbil Quickening Date Ultra Sound Latest Weeks Gestation Final Ronald Confirmed By Final Ronald Confirmed Date Final Ronald Date Ultra Sound Latest Days Gestation 0 06/07/20 21 0 Pre- Flowsheet Flowsheet Date 05/30/2021 Arrieta Score Blood Edema Fundus Height Fundus Units Glucose Ketones Leukocytes Nitrite Labor Signs Protein Cervic Dilation Cervic Effacement Cervic Station none 39 none none neg Type Weight in lbs Pre/Post Dialysis Refused Weight 201.342657931923 BP Diastolic BP Location Tested BP Systolic BP Type 82 122 Fetus Heart Rate Present A 146 Present Fetus Movement A Yes Comments Flowsheet Date 06/10/2021 Arrieta Score Blood Edema Fundus Height Fundus Units Glucose Ketones Leukocytes Nitrite Labor Signs Protein Cervic Dilation Cervic Effacement Cervic Station Type Weight in lbs Pre/Post Dialysis Refused Weight 184.178067626979 BP Diastolic BP Location Tested BP Systolic BP Type 70 L arm 122 sitting Fetus Heart Rate Present Fetus Movement Comments Flowsheet Date 08/04/2021 Arrieta Score Blood Edema Fundus Height Fundus Units Glucose Ketones Leukocytes Nitrite Labor Signs Protein Cervic Dilation Cervic Effacement Cervic Station Type Weight in lbs Pre/Post Dialysis Refused With clothes 0.0 BP Diastolic BP Location Tested BP Systolic BP Type sitting Fetus Heart Rate Present Fetus Movement Comments Menstrual History Last Menstrual Date Menses Monthly On Bcp Conception Prior Menses Frequency Hcg Plus Date Menarche Onset Age 0208/31/2020 11 Genetic Screening And Infection History Question Response Note Recent Travel History Outside of Country false Cystic Fibrosis false Any Other Genetic History false Burke Disease false Other Infection History false Thalassemia (Kyrgyz, Russian, Mediterranean, Or Background): MCV < 80 false Patient Or Baby's Father Had A Child With Defects Not Listed Above false Live With Someone With TB Or Exposed To TB false Patient's Age Will Be 35 Years Or Older At Estim ated Date of Delivery false Recurrent Loss, Or A Stillbirth false Hemoglobinopathy Or Carrier false Patient Or Partner Has History Of Genital Herpes false Intellectual Disability/Autism false Maternal Metabolic Disorder (eg, Type 1 Diabetes , PKU) false History of Hepatitis false Sergio-Sachs (eg, Jehovah'S Witness, Cajun, Uzbek-Latvian) f alse History Of STD, Gonorrhea, Chlamydia, HPV, Syphi lis false Prior GBS-infected child false History of HIV false Personal or Family History o f Neural Tube Defect (Meningomyelocele, Spina Bifida, Or Anencephaly) false Hemophilia Or Other Blood Disorders false Mental Retardation/Autism false Rosalba's Chorea false If Yes, Was Person Tested For Fragile X? false Other Inherited Genetic Or Chromosomal Disorder false If Yes, Agent(s) And Strength/Dosage false Sickle Cell Disease Or Trait () false Personal or Family History of Congenital Heart D efect false Rash Or Viral Illness Since Last Menstrual Perio d false Muscular Dystrophy false Medications (including Suppl ements, Vitamins, Herbs, OTC Drugs), Illicit/Recreational Drugs, Alcohol false Other Structural Defect false Down Syndrome false Delivery Information Delivery Date Delivery Type Labor Anesthesia Weeks Gestation Incision Type Labor Labor Length Hrs Delivered By Post Complications Tubal Sterilization Discharge Date Comments 1 Induce d [facility] 39.3 Low Transvers e false Garrett George MD false 06/06/2021 Discharge Information Feeding Method Contraceptive Method Maternal HG B and HCT Levels Bottle IUD Ob Episode Information Episode Created Date Number of Fetuses Patient Bloodtype Patient rh Status Prepregnancy Weight lbs Domestic Partner Domestic Partner Phone Father Name Air Intelligence Officer Status 08/04/19 22 1 DELETED Ronald Calculation Initial Ronald Date Initial Exam Date Initial Exam Provider Initial Ultrasound Date Last Menstrual Period Date Ultra Sound Weeks Gestation 0 Eighteen To Twenty Week Ronald Update Ultra Sound Date Fundal Height At Umbil Quickening Date Ultra Sound Latest Weeks Gestation Final Ronald Confirmed By Final Ronald Confirmed Date Final Ronald Date Ultra Sound Latest Days Gestation 0 0 Menstrual History Last Menstrual Date Menses Monthly On Bcp Conception Prior Menses Frequency Hcg Plus Date Menarche Onset Age Delivery Information Delivery Date Delivery Type Labor Anesthesia Weeks Gestation Incision Type Labor Labor Length Hrs Delivered By Post Complications Tubal Sterilization Discharge Date Comments 1 Discharge Information Feeding Method Contraceptive Method Maternal HG B and HCT Levels
--- OUTSIDE RECORDS SUMMARY | 2025-02-13 16:02 | XMS_ITS | Patient Health Record ---
Author Organization [facility] Address [address] [place] [address] Care Team Providers Care Motorcoach Operator Name Role Phone Dr. Riley Krishnan Primary Care Provider [phone] Edin Crystal Unavailable [phone] Codi Rucker Unavailable [phone] Migration, Provider Unavailable Unavailable Allergies Allergen (clinical drug ingredient) Drug/Non Drug Allergy documented on EMR Reaction Allergy Type Onset Date Status Tree nuts (uncoded) Unknown Allergy 10/09/2021 Active Honey Bee Venom Unknown Drug Allergy 10/09/2021 Active Wasp Venom Unknown Drug Allergy 10/09/2021 Activ e tramadol traMADol nausea Drug Allergy 10/09/2021 Active Results Component Value Reference Range Notes influenza A & B card Reviewed date:08/23/2024 09:39:39 AM Interpretation:Negative Performing Lab: Notes/Report: Negative Covid Rapid Antigen BD Verit or Reviewed date:08/23/2024 09:39:52 AM Interpretation:Negative Performing Lab: Notes/Report: Negative Reason For Referral No Information Medications Medication SIG (Take, Route, Frequency, Duration) Notes Start Date End Date Status Ibuprofen 600 MG Tablet 1 tablet with food or milk as needed Oral three times a day; Duration: 90 days As needed 03/16/2024 Unknown ProAir RespiClick 108 (90 Base) MCG/ACT Aerosol Powder Breath Activated 2-4 Inhalation every 4-6 hours; Duration: 0 02/09/2024 Unknown EPINEPHrine 0.3 MG/0.3ML Solution Auto-injector as directed Injection one time; Duration: 1 days As needed 12/21/2024 Active Silver sulfADIAZINE 1 % Cream 1 application Externally Once a day; Duration: 14 days 02/06/2025 03/06/2025 Active Problems Problem Type SNOMED Code ICD Code Onset Dates Problem Status W/U Status Risk Notes Problem Influenza A virus (085246209) Influenza A (J10.1) Active confirmed Problem Lumbago (333919272) Lumbago (724.2) 5 Active confirmed Problem Vitamin D deficiency (06243821) Vitamin D deficiency, unspecified (E55.9) 4 Active confirmed Problem Chronic migraine without aura, non-refractory (disorder) (633000898428036 ) Migraine without aura, not intractable, without status migrainosus (G43.009) 2 Active confirmed Problem Acute sinusitis (43789053) Acute sinusitis, unspecified (J01.90) 3 Active confirmed Problem Bronchitis (23428612) Bronchitis, not specified as acute or chronic (J40) 3 Active confirmed Problem Pilar cyst (264553636) Pilar cyst (L72.11) 3 Active confirmed Problem Pain of left knee joint (finding) (896480731313334 ) Pain in left knee (M25.562) 2 Active confirmed Problem Shortness of breath (602002659) Shortness of breath (R06.02) 4 Active confirmed Problem Pleurodynia (9569840) Pleurodynia (R07.81) 3 Active confirmed Problem Swelling of head (537309036) Localized swelling, mass and lump, head (R22.0) 3 Active confirmed Problem Fatigue (01196052) Other fatigue (R53.83) 4 Active confirmed Problem Adult health examination (700780735) Encounter for general adult medical examination without abnormal findings (Z00.00) 3 Active confirmed Problem Exposure to communicable disease (514508838) Contact with and (suspected) exposure to other viral communicable diseases (Z20.828) 4 Active confirmed Problem Family history of diabetes mellitus (657078197) Family history of diabetes mellitus (Z83.3) 4 Active confirmed Problem Food allergy (982086522) Allergy to other foods (Z91.018) 3 Active confirmed Problem COVID-19 (011662411) COVID-19 (U07.1) 2 Active confirmed Problem Exposure to acute respiratory syndrome coronavirus 2 (745117204) Contact with and (suspected) exposure to COVID-19 (Z20.822) 2 Active confirmed Problem Cough (finding) (25173174) Cough, unspecified (R05.9) 2 Active confirmed Problem Body mass index 30.00 to 34.99 (791280803707224 ) Body mass index (BMI) 31.0-31.9, adult (Z68.31) 3 Active confirmed Problem Low back pain (721587895) Low back pain (M54.5) 9 Inactive confirmed Problem Acute sinusitis (50304573) Acute sinusitis, unspecified (461.9) 9 Problem resolved confirmed Problem Pain in joint, lower leg (719.46) 9 Problem resolved confirmed Vital Signs Heart Rate 121 /min 08/23/2024 Temperature 102.0 degrees Fahrenheit 08/23/2024 Blood pressure diastolic 78 mm Hg 07/20/2024 Oximetry 95 % 08/23/2024 Height-cm 167.64 cm 08/23/2024 Weight-kg 94.39 kg 07/20/2024 Height 66.00 in 08/23/2024 Blood pressure systolic 118 mm Hg 07/20/2024 Weight 208.1 lbs 07/20/2024 BMI 33.58 kg/m2 07/20/2024 Encounters Encounter Location Date Provider Diagnosis [address] [address] 07/20/2024 Edin Crystal Acute maxillary sinusitis, recurrence not specified J01.[address] [address] 08/23/2024 Codi Rucker Body aches R52 and Viral illness B34.[address] [address] 02/06/2025 Dr. Riley Krishnan Sunburn, blistering L55.[address] [place] [address] 06/17/2024 Provider Migration [address] [address] 06/18/2024 Provider Migration [address] [address] 07/03/2024 Dr. Riley Krishnan [address] [address] 12/21/2024 Edin Crystal Allergy to other foods Z91.018 Assessments Encounter Date Diagnosis (ICD Code) Assessment Notes Treatment Notes Treatment Clinical Notes Section Notes 12/21/2024 Allergy to other foods (ICD-10 - Z91.018) 02/06/2025 Sunburn, blistering (ICD-10 - L55.1) 07/20/2024 Acute maxillary sinusitis, recurrence not specified (ICD-10 - J01.00) Initiate augmentin, discussed risk and benefit of medication, take with food. Take probiotic or consume yogurt during course to lessen GI side effects. Continue OTC symptomatic treatment. Call or return to office if symptoms progress after completion of antibiotics. Flu and covid negative. 08/23/2024 Viral illness (ICD-10 - B34.9) - Flu and Covid are negative. - Other viral illness causing symptoms. - Supportive/conse rvative management at home is recommended at this time. - Can continue to use Mucinex for cough/congestion . - Continue taking Tylenol/Motrin for fever/myalgias. - Increase water hydration, rest. - Flonase spray for nasal congestion daily. - F/U if symptoms persist or worsen in the next 5-7 days. 08/23/2024 Body aches (ICD-10 - R52) Plan Of Treatment Pending Test Test Name Order Date influenza A & B card 07/20/2024 Covid Rapid Antigen BD Veritor 5 Insurance Providers Payer Name Payer Address Payer Phone Subscriber Number Group Number Insured Name Patient Relationship to Insured Coverage Start Date Coverage End Date [facility] [address] [address] [place] [address] [id number] Teresa Modi Self - patient is the insured 5 [facility] Attn Claims Dept [address] [place] [address] [id number] Teersa Modi Self - patient is the insured 2
--- OUTSIDE RECORDS SUMMARY | 2025-02-13 16:02 | XMS_ITS | Referral Summary ---
Author Organization [facility] Address [address] [place] [address] Care Team Providers Care Shake Out Worker Name Role Phone Riley Krishnan MD Primary Care Provider [phone] Garrett George MD Unavailable [phone] Encounters Date Type Department Care Team Description 02/13/2025 3:00 PM CDT Office Visit [facility] at [address] [phone] Stacey Chan PA Sunburn (Primary Dx) 11/14/2024 5:15 PM CDT Office Visit [facility] at [address] [address] Tiesha Carrillo NP Acute otitis externa of left ear, unspecified type (Primary Dx) from Last 3 Months Allergies Active Allergy Reactions Criticality Noted Date Comments Nuts Anaphylaxis High 03/28/2019 TREE NUTS Tramadol Vomiting Medium 03/28/2019 Medications 25/iron fum/folic/dha (-1 ORAL) Take 1 tablet by mouth daily Active EPINEPHrine 0.3 mg/0.3 mL syringe Inject into the muscle as instructed once Active ibuprofen (ADVIL,MOTRIN) 600 mg tabletIndication s:Cramps Take 1 tablet (600 mg total) by mouth every 6 (six) hours 30 tablet 1 Active oxyCODONE (ROXICODONE) 5 mg immediate release tabletIndication s:Pain Take 1 tablet (5 mg total) by mouth every 4 (four) hours as needed for pain 12 tablet 1 Active Additional Information Patient not taking.Reported on 11/14/2024 estradioL (ESTRACE) 1 mg tablet Take 1 tablet every day by oral route. 2 Active silver sulfadiazine (SILVADENE, SSD) 1 % cream 5 Active methylPREDNISolo ne (MEDROL DOSEPACK) 4 mg Dosepack Take as directed on package. 21 tablet 5 02/20/20 25 Active Active Problems Problem Noted Date Diagnosed Date 39 weeks gestation of 06/03/2021 Delivery of by section 2020 Immunizations Immunization Administration Dates Next Due Tdap 06/05/2021(Deferred: Patient Ref used) Social History Tobacco Use Types Packs/Day Years Used Date Smoking Tobacco: Former AUDIT-C Answer Date Recorded Q1: How often do you have a drink containing alc ohol? Never 05/22/2021 Average Number of Drinks Not on file 021 Frequency of Binge Drinking Not on file 10/2020 [place] Depression Scale Answer Date Recorded [place] Depression Scale Total 3 06/04/2021 The thought of harming myself has occurred to me . Never 06/04/2021 Comments Unknown Sex and Gender Information Value Date Recorded Sex Assigned at Not on file Legal Sex Female 3:47 PM CDT Gender Identity Female 06/19/2021 2:57 PM REPAIR WELDER Sexual Orientation Straight 06/19/2021 2: 57 PM REPAIR WELDER Last Filed Vital Signs Vital Sign Reading Time Taken Comments Blood Pressure 142/98 02/13/2025 2:01 PM CDT Pulse 80 02/13/2025 2:01 PM CDT Temperature 37 C (98.6 F) 02/13/2025 2:01 PM CDT Respiratory Rate 20 02/13/2025 2:01 PM CDT Oxygen Saturation 99% 02/13/2025 2:01 PM CDT Inhaled Oxygen Concentration - - Weight 97.2 kg (214 lb 4.8 oz) 02/13/2025 2:01 P M CDT Height 167.6 cm (5' 6) 06/03/2021 8:57 AM REPAIR WELDER Body Mass Index 34.59 06/03/2021 8:57 AM REPAIR WELDER Plan of Treatment Not on file Insurance [facility] [employer] Advance Directives For more information, please contact: [phone] * Full Code (Latest Code Status on File) Date Activated Date Inactivated Comments 06/03/2021 11:41 AM 06/05/2021 3:54 PM * Full Code Date Activated Date Inactivated Comments 06/03/2021 8:01 AM 06/03/2021 11:41 AM Full CPR in case of cardiopulmonary arrest Care Teams Shake Out Worker Relationship Specialty Start Date End Date Riley Krishnan MD [address] [place] [address] PCP - General Pediatrics 06/02/21 Garrett George MD [address] [place] [address] Consulting Physician Internal Medicine 06/05/21
--- OUTSIDE RECORDS SUMMARY | 2025-02-13 16:02 | XMS_ITS | Encounter Summary ---
Author Organization [facility] Healthcare Address [address] [place] [address] Care Team Providers Care Tank Officer Name Role Phone Riley Krishnan MD Primary Care Provider [phone] Garrett George MD Unavailable [phone] Reason for Visit * Reason Comments Sunburn Severe sunburn on bi lateral legs, trunk, and chest from float trip on February 03. Not using burn cream. Encounter Details Date Type Department Care Team (Late st Contact Info) Description 02/13/2025 3:00 PM CDT Office Visit [facility] Care at [address] [address] Stacey Chan PA [address] [place] [address] [address] [place] [address] Sunburn (Primary Dx) Social History Tobacco Use Types Packs/Day Years Used Date Smoking Tobacco: Former AUDIT-C Answer Date Recorded Q1: How often do you have a drink containing alc ohol? Never 05/22/2021 Average Number of Drinks Not on file 021 Frequency of Binge Drinking Not on file 10/2020 [place] Depression Scale Answer Date Recorded [place] Depression Scale Total 3 06/04/2021 The thought of harming myself has occurred to me . Never 06/04/2021 Comments Unknown Sex and Gender Information Value Date Recorded Sex Assigned at Not on file Legal Sex Female 3:47 PM CDT Gender Identity Female 06/19/2021 2:57 PM DIGITAL INTERN Sexual Orientation Straight 06/19/2021 2: 57 PM DIGITAL INTERN documented as of this encounter Last Filed Vital Signs Vital Sign Reading [...] oz) 02/13/2025 2:01 P M CDT Height - - Body Mass Index 34.59 06/03/2021 8:57 AM DIGITAL INTERN documented in this encounter Ordered Prescriptions Prescription Sig Dispense Quantity Refills Last Filled Start Date End Date methylPREDNISolone (MEDROL DOSEPACK) 4 mg Dosepack Take as directed on package. 21 tablet 02/13/2025 documented in this encounter Progress Notes * Stacey Chan PA - 02/13/2025 3:00 PM CDT Images from the original note were not included. Subjective/Objective Patient ID: Teresa Modi is a 34 y.o. female. Chief Complaint Sunburn (Severe sunburn on bilateral legs, trunk, and chest from float trip on February 03. Not usingburn cream. ) Pt presents w/ sunburn x 10 days. Reports sunburn after a float trip to her chest, arms, back, and legs. Has been using aloe wraps. Has had peeling and blisters which have ruptured. Initially had chills, nausea but states those symptoms have resolved. Went to work yesterday and after being on her feet all day her legs started turning from red to purple and she noticed some swelling. No cp or sob. Review of Systems All systems reviewed and are negative or non contributory for this patient's presentation today other than as stated in the HPI . Physical Exam Constitutional: General: She is not in acute distress. HENT: Head: Normocephalic and atraumatic. Mouth/Throat: Pharynx: Oropharynx is clear. Eyes: Pupils: Pupils are equal, round, and reactive to light. Cardiovascular: Rate and Rhythm: Normal rate. Pulmonary: Effort: Pulmonary effort is normal. Musculoskeletal: General: Normal range of motion. Cervical back: Normal range of motion. Skin: General: Skin is warm and dry. Comments: See photo - 1+ edema BLE Neurological: General: No focal deficit present. Mental Status: She is alert and oriented to person, place, and time. Psychiatric: Mood and Affect: Mood normal. Behavior: Behavior normal. Vitals: 02/13/25 1401 BP: 142/98 Pulse: 80 Resp: 20 Temp: 37 ??C (98.6 ??F) TempSrc: Temporal SpO2: 99% Weight: 97.2 kg (214 lb 4.8 oz) Assessment/Plan -pt w/ severe sunburn to arms, legs, chest, and back sustained 10 days ago -she is healing on her upper body but states her legs started turning a darker color yesterday and started swelling after being on her feet at work -discussed case w/ attending physician, plan is to continue nsaids, elevated legs, medrol dose pack, and f/u w/ pcp within 3 days for blood work -pt to present to ED for worsening symptoms or if unable to get in with pcp Diagnoses and all orders for this visit: Sunburn (Primary) Other orders - methylPREDNISolone (MEDROL DOSEPACK) 4 mg Dosepack; Take as directed on package. No results found for this or any previous visit (from the past 4 hours). Disposition Treatment plan including expectations, follow up, and return precautions discussed with patient/parent, verbalizes understanding. Medication dosage, use, and potential adverse reactions discussed with patient/parent. Advised to follow up with PCP if symptoms do not resolve as expected or sooner if condition worsens. Signs/symptoms warranting ER evaluation reviewed. Patient and/or guardian was given an opportunity to ask questions, questions answered. MARIE Blankenship 02/13/25 3:02 PM documented in this encounter Plan of Treatment Not on file documented as of this encounter Visit Diagnoses Diagnosis Sunburn- Primary documented in this encounter Historical Medications * This list may reflect changes made after this encounter. silver sulfadiazine (SILVADENE, SSD) 1 % cream 02/06/2025 estradioL (ESTRACE) 1 mg tablet Take 1 tablet every day by oral route. 08/04/2021 added in this encounter Care Teams Tank Officer Relationship Specialty Start Date End Date Riley Krishnan MD [address] [place] [address] PCP - General Pediatrics 06/02/21 Garrett George MD [address] [place] [address] Consulting Physician Internal Medicine 06/05/21 documented as of this encounter
--- OUTSIDE RECORDS SUMMARY | 2025-02-13 16:02 | XMS_ITS | Encounter Summary ---
Author Organization [facility] Address [address] [place] [address] Care Team Providers Care Curator Of Photography And Prints Name Role Phone None, Provider Primary Care Provider Riley Ace MD Primary Care Provider [phone] Encounter Details Date Type Department Care Team (Late st Contact Info) Description 12/24/2018 Abstract [facility] CONVERSION [address] [place] [address] , Generic Conversion, Social History Tobacco Use Types Packs/Day Years Used Date Smoking Tobacco: Never Assessed Comments Unknown Sex and Gender Information Value Date Recorded Sex Assigned at Not on file Legal Sex Female 2:16 PM CDT Gender Identity Not on file Sexual Orientation Not on file documented as of this encounter Plan of Treatment Not on file documented as of this encounter Visit Diagnoses Not on filedocumented in this encounter Additional Health Concerns Infection Onset Date Last Indicated Resolved Time COVID-19 Rule Out 04/20/2021 04/20/2021 04/20/2021 9:59 AM CDT documented as of this encounter Care Teams Curator Of Photography And Prints Relationship Specialty Start Date End Date None, Provider, PCP - General 03/27/19 09/06/19 Riley Krishnan MD [address] [place] [address] PCP - General PEDIATRICS 09/07/19 documented as of this encounter
--- OUTSIDE RECORDS SUMMARY | 2025-02-13 16:02 | XMS_ITS | Clinical Summary ---
Author Organization [facility] Address [address] [place] [address] Care Team Providers Care Continuity Clerk Name Role Phone Dameon Stone MD Primary Care Provider [phone] Source Comments [facility],non-owned Affiliates and Associated Physician Practices is amultiple site organization consisting of ambulatory clinics and hospital sitesin [place], [place], [place] and [place]. This disclosure is being madepursuant to the Care Everywhere program and may not contain all information available regarding this patient. Last updated 18.[facility] Active Problems Problem Noted Date Diagnosed Date Third 02/04/2021 Family history of congenital heart defect 2017 Social History Tobacco Use Types Packs/Day Years Used Date Smoking Tobacco: Never Assessed Comments No Sex and Gender Information Value Date Recorded Sex Assigned at Not on file Legal Sex Female 1:43 PM PRACTICE NURSE Gender Identity Not on file Sexual Orientation Not on file Plan of Treatment Health Maintenance Due Date Last Done Comments HIV SCREENING 10/03/2007 HEPATITIS C SCREENING 09/28/2010 DTAP/TDAP/TD VACCINES (1 - Tdap) 10/03/2011 HEPATITIS B VACCINE (1 of 3 - 19+ 3-dose series) 10/03/2011 HPV VACCINE (1 - 3-dose SCDM series) 10/03/2019 COVID-19 VACCINE (1 - 2023-2 5 season) 2024 DEPRESSION SCREENING 07/19/2024 INFLUENZA VACCINE (#1) 2025 ZOSTER VACCINE (1 of 2) 2042 HIB VACCINE Aged Out No longer eligi ble based on patient's age to complete this topic MENINGOCOCCAL (Group B) VACC INE SHARED DECISION-MAKING Aged Out No longer eligibl e based on patient's age to complete this topic MENINGOCOCCAL GROUPS A/C/Y/W VACCINE Aged Out No longer eligible b ased on patient's age to complete this topic PNEUMOCOCCAL VACCINE Aged Out No long er eligible based on patient's age to complete this topic Insurance [facility] MEDICAID - [place] MEDICAID - OUT OF STATE [facility] Care Teams Continuity Clerk Relationship Specialty Start Date End Date Dameon Stone MD PCP - General Family Medicine 08/18/17
--- OUTSIDE RECORDS SUMMARY | 2025-02-13 16:02 | XMS_ITS | Clinical Summary ---
Author Organization [facility] Address [facility] [place] [address] Care Team Providers Care Pumper Head Name Role Phone Riley Krishnan MD Primary Care Provider [phone] Allergies Active Allergy Reactions Criticality Noted Date Comments Nuts Anaphylaxis High 03/28/2019 TREE NUTS Tramadol Vomiting Medium 03/28/2019 Medications vitamin, low iron, ( VITAMIN WITH IRON) 27-0.8 MG tablet Take 1 tablet by mouth daily. Active Active Problems Problem Noted Date Diagnosed Date ([facility]) 04/20/2021 Social History Tobacco Use Types Packs/Day Years Used Date Smoking Tobacco: Former Cigarettes Q uit: 09/08/2017 Smokeless Tobacco: Never Alcohol Use Standard Drinks/Week Comments Never 0 (1 standard drink = 0.6 oz pur e alcohol) AUDIT-C Answer Date Recorded Frequency of Alcohol Consumption Never 09/08/2019 Average Number of Drinks Not on file 020 Frequency of Binge Drinking Not on file 08/20 Comments No Sex and Gender Information Value Date Recorded Sex Assigned at Not on file Legal Sex Female 2:16 PM CDT Gender Identity Not on file Sexual Orientation Not on file Last Filed Vital Signs Vital Sign Reading Time Taken Comments Blood Pressure 118/71 04/20/2021 8:15 AM CDT Pulse 91 04/20/2021 8:15 AM CDT Temperature 37.2 C (98.9 F) 04/20/2021 8:00 AM CDT Respiratory Rate 18 04/20/2021 8:00 AM CDT Oxygen Saturation 99% 04/20/2021 4:45 AM CDT Inhaled Oxygen Concentration - - Weight 68 kg (150 lb) 12/12/2019 2:22 PM CDT Height 170.2 cm (5' 7) 12/12/2019 2:22 PM CDT Body Mass Index 23.49 12/12/2019 2:22 PM CDT Plan of Treatment Health Maintenance Due Date Last Done Comments Cervical Cancer Screening Pap Smear (Age 30 to 64) Every 3 Years 1992 Annual Physical 10/03/1995 Hepatitis C 2010 DTaP, Tdap and Td Vaccines (1 - Tdap) 10/03/2011 10/12/1994, 04/21/1993, 02/13/1993, Additional history exists Hepatitis B Vaccines (1 of 3 - 19+ 3-dose series) 10/03/2011 Cervical Cancer Screening Pap with HPV Testing (Age 30 to 64) Every 5 Years 2022 Cervical Cancer Screening with HPV 2022 COVID-19 Vaccine ( season) 2024 HPV Vaccines Completed 08/25/2007, 07/2006, 02/28/2007 Meningococcal B Vaccine Aged Out No [place] eligible based on patient's age to complete this topic Meningococcal Vaccine Aged Out No [place] eligible based on patient's age to complete this topic Pneumococcal Vaccine: Pediatrics (0 to 5 Years) and At-Risk Patients (6 to 49 Years) Aged Out No longer eligible based on patient's age to complete this topic RSV Immunizations Under 20 Months Aged Out No longer eligible based on patient's age to complete this topic [place] [address] [address] [place] [address] MEDICAID Advance Directives Documents on File Type Date Recorded Patient Carton Forming Machine Tender Expl anation Advance Directives and Living Will 02/09/2018 12:00 AM ADVANCED DIRECTIVES Care Teams Pumper Head Relationship Specialty Start Date End Date Riley Krishnan MD [address] [place], [place] [id number] PCP - General PEDIATRICS 09/07/19
--- OUTSIDE RECORDS SUMMARY | 2025-02-13 16:02 | XMS_ITS | Clinical Summary ---
Author Organization [facility] Address [address] [place] [address] Care Team Providers Care Superintendent Menagerie Name Role Phone Riley Krishnan MD Primary Care Provider Garrett George MD Unavailable [phone] Allergies Active Allergy Reactions Criticality Noted Date [...] every 6 (six) hours 30 tablet 1 1 Active oxyCODONE (ROXICODONE) 5 mg immediate [...] of 06/03/2021 Delivery of by section 2020 Encounters Date Type Department Care Team Description 02/13/2025 3:00 PM CDT Office Visit [facility] Con[facility]ient Care at [address] [phone] Stacey Chan PA Sunburn (Primary Dx) 11/14/2024 5:15 PM CDT Office Visit [facility] Medical [facility] Convenient Care at [address] [phone] Tiesha Carrillo NP Acute otitis externa of left ear, unspecified type (Primary Dx) from Last 3 Months Immunizations Immunization Administration Dates Next Due Tdap 06/05/2021(Deferred: Patient Ref used) Surgical History Surgery Date Site/Laterality Comments SECTION WISDOM TOOTH EXTRACTION Medical History Medical History Date Comments Abnormal Pap smear of cervix Family History Medical History Relation Name Comments COPD Maternal Grandfather Diabetes Maternal Grandmother Allergy (severe) Mother Hypertension Mother Heart disease Sister Relation Name Status Comments Father Alive Maternal Grandfather Alive Maternal Grandmother Alive Mother Alive Paternal Grandfather Alive Paternal Grandmother Alive Sister Social History Tobacco Use Types Packs/Day Years Used Date Smoking Tobacco: Former AUDIT-C Answer Date Recorded Q1: How often do you have a drink containing alc ohol? Never 05/22/2021 Average Number of Drinks Not on file 021 Frequency of Binge Drinking Not on file 10/2020 [place] Depression Scale Answer Date Recorded [place] Depression Scale Total 3 06/04/2021 The thought of harming myself has occurred to me . Never 06/04/2021 Comments Unknown Sex and Gender Information Value Date Recorded Sex Assigned at Not on file Legal Sex Female 3:47 PM CDT Gender Identity Female 06/19/2021 2:57 PM AUTOMOTIVE SERVICE TECHNICIAN Sexual Orientation Straight 06/19/2021 2: 57 PM AUTOMOTIVE SERVICE TECHNICIAN Obstetrics History Para Term AB IAB SAB Ectopic Multiple Livin g Live Births 3 3 3 0 3 3 Date Outcome GA Total Labor Labor/2nd/3rd Weight Sex Type Anes PTL Kiah A1 A5 Name Clin 2012 Term 40w 0d 2.892 kg (6 lb 6 oz) M Vag-S pont Y Livin g 2017 Term 39w 0d 3.685 kg (8 lb 2 oz) F CS-LT ranv Livin g Complications:Failure to Pro illa in First Stage 2020 Term 39w 3d 0h 02m 0h 02m 3.51 kg (7 lb 11.8 oz) M CS-LT ranv Spinal Livin g 9 9 ELODIA Hollingsworth,CAMILO WARD IN [facility] , Nikhil Maldonado MD Delivery Location:[facility] ([facility]) Last Filed Vital Signs Vital Sign Reading [...] 167.6 cm (5' 6) 06/03/2021 8:57 AM AUTOMOTIVE SERVICE TECHNICIAN Body Mass Index 34.59 06/03/2021 8:57 AM AUTOMOTIVE SERVICE TECHNICIAN Plan of Treatment Health Maintenance Due Date Last Done Comments Cervical Cancer Screening 1992 Hepatitis C Screening 1992 Varicella Vaccines (1 of 2 - 13+ 2-dose series) 2005 Regular Well Visit/Exam 18-64 2010 Depression Screening 06/04/2022 06/04/2021 Influenza Vaccine (#1) 2025 DTaP/Tdap/Td Vaccine (7 - Td or Tdap) 08/02/2026 08/02/2016, 02/28/2007, 10/12/1994, Additional history exists Hepatitis B Screening Completed 04/21/1993 , 1992, 1992 HPV Vaccines Completed 08/25/2007, 07/2006, 02/28/2007 Pneumococcal vaccine <65 Aged Out No longer eligible based on patient's age to complete this topic Insurance IDPA [facility] CHOICE PLUS Advance Directives For more information, please contact: [phone] * Full Code (Latest Code Status on File) Date Activated Date Inactivated Comments 06/03/2021 11:41 AM 06/05/2021 3:54 PM * Full Code Date Activated Date Inactivated Comments 06/03/2021 8:01 AM 06/03/2021 11:41 AM Full CPR in case of cardiopulmonary arrest Care Teams Superintendent Menagerie Relationship Specialty Start Date End Date Riley Krishnan MD [address] [place] [address] PCP - General Pediatrics 06/02/21 Garrett George MD [address] [place] [address] Consulting Physician Internal Medicine 06/05/21
--- NOTE | 2025-02-13 16:06 | ED_ITS ---
HPI - Burn/Smoke Inhalation General Chief complaint: Skin/Abscess/Foreign Body Stated complaint: sunburn and swelling Time Seen by Provider: 02/13/25 16:06 Source: patient History of Present Illness HPI Narrative: 34 years old white female came to the ED complaining of sunburn of the lower legs from mid thigh down to the ankle bilaterally and anteriorly 10 days ago, started own silver sulfadiazine , does not like the feeling of it so did stopped after 1 time use. Patient denies any fever, chills, nausea, vomiting. Patient was seen at urgent care today and had a prescription of Medrol Dosepak. Patient is scheduled see her family physician tomorrow. Patient's symptoms got worse after she went back to work which requires long hours standing and walking. Patient wearing tight pants . Related Data Home Medications ?Medication ?Instructions ?Recorded ?Confirmed ?Last Taken ?Type methylprednisolone 4 mg tablets in mg 02/13/25 Unknown History a dose pack silver sulfadiazine 1 % topical applic topical 02/13/25 Unknown History cream Allergies Allergy/AdvReac Type Severity Reaction Status Date / Time tramadol AdvReac Vomiting Verified 02/13/25 16:09 Review of Systems Review of Systems: All systems reviewed & are unremarkable except as noted in HPI and below PMFSH Past Medical History Medical History Migraine headache Exam Narrative: General appearance: Well-developed, well-nourished Skin: Normal color , first-degree burn of the lower legs anteriorly mid thigh down to the ankle. No blisters, no open skin, warm to touch and red Head: Normocephalic, nontraumatic Chest and respiratory: Airway patent, no respiratory distress, no accessory muscle use Heart: Regular rate/rhythm Vascular: Normal peripheral pulses, normal capillary refill. Musculoskeletal: Normal range of motion, nontender back Neurologic: Alert and oriented ?3, TRAINING PROGRAM DEVELOPER is normal as tested, no gross motor deficit Course Vital Signs Vital signs: Vital Signs Temperature 36.2 C L 02/13/25 15:52 Pulse Rate 80 02/13/25 15:52 Respiratory Rate 18 02/13/25 15:52 Blood Pressure 138/88 02/13/25 15:52 Pulse Oximetry 97 02/13/25 15:52 Oxygen Delivery Room Air 02/13/25 15:52 Temperature 36.2 C L 02/13/25 15:52 Pulse Rate 80 02/13/25 15:52 Respiratory Rate 18 02/13/25 15:52 Blood Pressure 138/88 02/13/25 15:52 Pulse Oximetry 97 02/13/25 15:52 Oxygen Delivery Room Air 02/13/25 15:52 MDM - Burn/Smoke Inhalation MDM Narrative Medical decision making narrative: patient presents with first-degree sun burn of the lower extremity bilaterally, did not like the use of silver sulfadiazine cream, started on Medrol Dosepak today by the urgent care, my plan to discharge patient on ibuprofen 600 every 6 hours as needed, to keep leg elevated, of work for the next 3 days, use [id number] Aveeno moisturizer or Aquaphor. Differential Diagnosis Differential diagnosis: Likely sunburn Critical Care Time Critical Care Time Critical Care Time: No Discharge Plan Discharge Clinical Impression: Sunburn Patient Disposition: Home Condition: Stable Instructions: Sunburn (ED) Additional Instructions: Return if symptoms are worsening , call your family physician for appointment, take Tylenol, ibuprofen as as needed for aches and pain, continue home medications. Around cool or room temperature water over the burn to soothe the pain Keep the skin clean using soap and water Moisturize the burn area using Aquaphor or aveeno Keep leg elevated Patient Language: Divehi Prescriptions: No Action silver sulfadiazine 1 % cream TOPICAL methylprednisolone 4 mg tablets,dose pack Follow-up/Referrals: Riley Krishnan MD [Primary Care Provider] - Stand Alone Forms: Work/School Release IP
--- OUTSIDE RECORDS SUMMARY | 2025-02-13 16:34 | XMS_ITS | Referral Summary ---
Author Organization [facility] Address [address] [place] [address] Care Team Providers Care Track Manager Name Role Phone Riley Krishnan MD Primary Care Provider Garrett George MD Unavailable [phone] Encounters Date Type Department Care Team Description 02/13/2025 3:00 PM CDT Office Visit [facility]venient Care at [address] [phone] tSacey Chan PA Sunburn (Primary Dx) 11/14/2024 5:15 PM CDT Office Visit [facility] at [address] [phone] Tiesha Carrillo NP Acute otitis [...] of Binge Drinking Not on file 10/2020 [place] Depression Scale Answer Date Recorded [place] Depression Scale Total 3 06/04/2021 The thought of harming myself has occurred to me . Never 06/04/2021 Comments Unknown Sex and Gender Information Value Date Recorded Sex Assigned at Not on file Legal Sex Female 3:47 PM CDT Gender Identity Female 06/19/2021 2:57 PM DEPUTY OF COUNTER INTELLIGENCE Sexual Orientation Straight 06/19/2021 2: 57 PM DEPUTY OF COUNTER INTELLIGENCE Last Filed Vital Signs Vital Sign Reading [...] 167.6 cm (5' 6) 06/03/2021 8:57 AM DEPUTY OF COUNTER INTELLIGENCE Body Mass Index 34.59 06/03/2021 8:57 AM DEPUTY OF COUNTER INTELLIGENCE Plan of Treatment Not on file Insurance IDPA [facility] CHOICE PLUS Advance Directives For more information, please contact: [phone] * Full Code (Latest Code Status on File) Date Activated Date Inactivated Comments 06/03/2021 11:41 AM 06/05/2021 3:54 PM * Full Code Date Activated Date Inactivated Comments 06/03/2021 8:01 AM 06/03/2021 11:41 AM Full CPR in case of cardiopulmonary arrest Care Teams Track Manager Relationship Specialty Start Date End Date Riley Krishnan MD [address] [place] [address] PCP - General Pediatrics 06/02/21 Garrett George MD [address] [place] [address] Consulting Physician Internal Medicine 06/05/21
--- OUTSIDE RECORDS SUMMARY | 2025-02-13 16:34 | XMS_ITS | Clinical Summary ---
Author Organization [facility] Address [address], [place] [address] Phone Care Team Providers Care Commander Internal Affairs Name Role Phone Riley Krishnan MD Primary Care Provider [phone] Allergies Active Allergy Reactions Criticality Noted Date [...] on file Legal Sex Female 4:08 PM BARKEEPER Gender Identity Not on file Sexual Orientation Not on file Last Filed Vital Signs Vital Sign Reading Time Taken Comments Blood Pressure 120/84 07/01/2020 1:31 PM BARKEEPER Pulse 92 07/01/2020 1:31 PM BARKEEPER Temperature 36.7 C (98 F) 07/01/2020 1:31 PM BARKEEPER Respiratory Rate 16 07/01/2020 1:31 PM BARKEEPER Oxygen Saturation 99% 07/01/2020 1:31 PM BARKEEPER Inhaled Oxygen Concentration - - Weight 79.7 kg (175 lb 12.8 oz) 07/01/2020 1:31 PM BARKEEPER Height 166.6 cm (5' 5.6) 07/01/2020 1:31 PM BARKEEPER Body Mass Index 28.72 07/01/2020 1:31 PM BARKEEPER Plan of Treatment Health Maintenance Due Date [...] to complete this topic Insurance [place] [address] [place] [address] Care Teams Commander Internal Affairs Relationship Specialty Start Date End Date Riley Krishnan MD [address] [place] [address] PCP - General Pediatrics 11/03/19
--- OUTSIDE RECORDS SUMMARY | 2025-02-13 16:34 | XMS_ITS | Clinical Summary ---
Author Organization [facility] Address [address] [place] [address] Care Team Providers Care Chute Feeder Name Role Phone Dameon Stone MD Primary Care Provider [phone] Source Comments [facility],non-owned Affiliates and Associated Physician Practices is amultiple site organization consisting of ambulatory clinics and hospital sitesin [place], [place], [place] and [place]. This disclosure is being madepursuant to the Care Everywhere program and may not contain all information available regarding this patient. Last updated 18.[facility] Active Problems Problem Noted Date Diagnosed Date Third 02/04/2021 Family history of congenital heart defect 2017 Social History Tobacco Use Types Packs/Day Years Used Date Smoking Tobacco: Never Assessed Comments No Sex and Gender Information Value Date Recorded Sex Assigned at Not on file Legal Sex Female 1:43 PM DINING ROOM ATTENDANT Gender Identity Not on file Sexual Orientation [...] patient's age to complete this topic Insurance [facility] MEDICAID - [place] MEDICAID - OUT OF STATE [facility] Care Teams Chute Feeder Relationship Specialty Start Date End Date Dameon Stone MD PCP - General Family Medicine 08/18/17
--- OUTSIDE RECORDS SUMMARY | 2025-02-13 16:34 | XMS_ITS | Clinical Summary ---
Author Organization [facility] Address [facility] [place] [address] Care Team Providers Care Screener And Blender Name Role Phone Riley Krishnan MD Primary Care Provider [phone] Allergies Active Allergy Reactions Criticality Noted Date Comments Nuts Anaphylaxis High 03/28/2019 TREE NUTS Tramadol Vomiting Medium 03/28/2019 Medications vitamin, low iron, ( VITAMIN WITH IRON) 27-0.8 MG tablet Take 1 tablet by mouth daily. Active Active Problems Problem Noted Date Diagnosed Date ([facility]) 04/20/2021 Social History Tobacco Use Types Packs/Day [...] patient's age to complete this topic Insurance [address] [place] [address] MEDICAID Advance Directives Documents on File Type Date Recorded Patient Process Excellence Manager Expl anation Advance Directives and Living Will 02/09/2018 12:00 AM ADVANCED DIRECTIVES Care Teams Screener And Blender Relationship Specialty Start Date End Date Riley Krishnan MD [address] [place], [place] [id number] PCP - General PEDIATRICS 09/07/19
--- OUTSIDE RECORDS SUMMARY | 2025-02-13 16:34 | XMS_ITS | Clinical Summary ---
Author Organization [facility] Address [address] [place] [address] Care Team Providers Care Special Library Librarian Name Role Phone Riley Krishnan MD Primary Care Provider Garrett George MD Unavailable [phone] Allergies Active Allergy Reactions Criticality Noted Date [...] Description 02/13/2025 3:00 PM CDT Office Visit [facility] Convenient Care at [address] [phone] Stacey Chan PA Sunburn (Primary Dx) 11/14/2024 5:15 PM CDT Office Visit [facility] Medical [facility] Convenient Care at [address] [phone] Tiesha Carrillo NP Acute otitis externa of [...] of Binge Drinking Not on file 10/2020 [place] Depression Scale Answer Date Recorded [place] Depression Scale Total 3 06/04/2021 The thought of harming myself has occurred to me . Never 06/04/2021 Comments Unknown Sex and Gender Information Value Date Recorded Sex Assigned at Not on file Legal Sex Female 3:47 PM CDT Gender Identity Female 06/19/2021 2:57 PM RECOVERY OPERATOR HELPER Sexual Orientation Straight 06/19/2021 2: 57 PM RECOVERY OPERATOR HELPER Obstetrics History Para Term AB IAB SAB [...] CS-LT ranv Livin g Complications:Failure to Pro lila in First Stage 2020 Term 39w 3d 0h 02m 0h 02m 3.51 kg (7 lb 11.8 oz) M CS-LT ranv Spinal Livin g 9 9 ELODIA Hollingsworth,CAMILO WARD IN [facility] , Nikhil Maldonado MD Delivery Location:[facility] ([facility]) Last Filed Vital Signs Vital Sign [...] 167.6 cm (5' 6) 06/03/2021 8:57 AM RECOVERY OPERATOR HELPER Body Mass Index 34.59 06/03/2021 8:57 AM RECOVERY OPERATOR HELPER Plan of Treatment Health Maintenance Due Date [...] age to complete this topic Insurance IDPA [facility] CHOICE PLUS Advance Directives For more information, please contact: [phone] * Full Code (Latest Code Status on File) Date Activated Date Inactivated Comments 06/03/2021 11:41 AM 06/05/2021 3:54 PM * Full Code Date Activated Date Inactivated Comments 06/03/2021 8:01 AM 06/03/2021 11:41 AM Full CPR in case of cardiopulmonary arrest Care Teams Special Library Librarian Relationship Specialty Start Date End Date Riley Krishnan MD [address] [place] [address] PCP - General Pediatrics 06/02/21 Garrett George MD [address] [place] [place] [address] Consulting Physician Internal Medicine 06/05/21
--- OUTSIDE RECORDS SUMMARY | 2025-02-13 16:34 | XMS_ITS | Encounter Summary ---
Author Organization [facility] Address [address] [place] [address] Care Team Providers Care Pipe Machine Operator Name Role Phone None, Provider Primary Care Provider Riley Ace MD Primary Care Provider [phone] Encounter Details Date Type Department Care Team (Late st Contact Info) Description 12/24/2018 Abstract [facility] CONVERSION [address] [place] [address] , Generic Conversion, Social History Tobacco Use [...] documented as of this encounter Care Teams Pipe Machine Operator Relationship Specialty Start Date End Date None, Provider, PCP - General 03/27/19 09/06/19 Riley Krishnan MD [address] [place] [address] PCP - General PEDIATRICS 09/07/19 documented as of this encounter
--- OUTSIDE RECORDS SUMMARY | 2025-02-13 16:34 | XMS_ITS | Encounter Summary ---
Author Organization [facility] Address [address] [place] [address] Care Team Providers Care Cage Maker Machine Name Role Phone Riley Krishnan MD Primary Care Provider [phone] Encounter Details Date Type Department Care Team (Late st Contact Info) Description 05/11/2021 Hospital Follow-up Call [facility] [place] [address] Yazmin Atkinson, RN Social History Tobacco Use [...] on filedocumented in this encounter Care Teams Cage Maker Machine Relationship Specialty Start Date End Date Riley Krishnan MD [address] [place] [address] PCP - General PEDIATRICS 09/07/19 documented as of this encounter
--- OUTSIDE RECORDS SUMMARY | 2025-02-13 16:34 | XMS_ITS | Encounter Summary ---
Author Organization [facility] Healthcare Address [address] [place] [address] Care Team Providers Care Hydraulic Blocker Name Role Phone Riley Krishnan MD Primary Care Provider [phone] Garrett George MD Unavailable [phone] Reason for Visit * Reason Comments Sunburn Severe sunburn on bi lateral legs, trunk, and chest from float trip on February 03. Not using burn cream. Encounter Details Date Type Department Care Team (Late st Contact Info) Description 02/13/2025 3:00 PM CDT Office Visit [facility] at [address] [id number] Stacey Chan PA [address] [place] [address] [address] [place] [address] Sunburn (Primary Dx) Social History Tobacco Use Types Packs/Day Years Used Date Smoking Tobacco: Former AUDIT-C Answer Date Recorded Q1: How often do you have a drink containing alc ohol? Never 05/22/2021 Average Number of Drinks Not on file 021 Frequency of Binge Drinking Not on file 10/2020 Topping Depression Scale Answer Date Recorded Topping Depression Scale Total 3 06/04/2021 The thought of harming myself has occurred to me . Never 06/04/2021 Comments Unknown Sex and Gender Information Value Date Recorded Sex Assigned at Not on file Legal Sex Female 3:47 PM CDT Gender Identity Female 06/19/2021 2:57 PM ADDICTIONS COUNSELOR ASSISTANT Sexual Orientation Straight 06/19/2021 2: 57 PM ADDICTIONS COUNSELOR ASSISTANT documented as of this encounter Last Filed [...] Body Mass Index 34.59 06/03/2021 8:57 AM ADDICTIONS COUNSELOR ASSISTANT documented in this encounter Ordered Prescriptions Prescription [...] 08/04/2021 added in this encounter Care Teams Hydraulic Blocker Relationship Specialty Start Date End Date Riley Krishnan MD [address] [place] [address] PCP - General Pediatrics 06/02/21 Garrett George MD [address] [place] [address] Consulting Physician Internal Medicine 06/05/21 documented as of this encounter
== END 2025-02-13 16:45 | disposition home or self-care (01) ==
LOC: CHSED 16:32
PROVIDERS: Emergency Provider Emergency Medicine; PCP Pediatrics
DX: L55.9 Sunburn, unspecified (principal)
CPT/HCPCS: 99281